=== PATIENT | female | born 2000 | race Two or more races ===

== ENCOUNTER → 2024-04-22 | Outpatient (CLI) | payer MEDICAID, SELFPAY ==
--- NOTE | 2024-04-22 15:45 | XR_ITS ---
Examination: Transvaginal ultrasound of the pelvis, complete Technique: Transvaginal sonographic images pelvis performed using amor scale imaging Exam date and time: April 22, 2024 1524 hours INDICATIONS: Irregular menses 1 years FINDINGS: Uterus 8.0 x 3.6 x 5.2 cm No uterine mass or intrauterine gestation Endometrial stripe 1.0 cm Right ovary 2.7 x 2.3 x 2.6 cm arterial flow small follicles Left ovary removed 16 years ago IMPRESSION: No uterine mass or intrauterine gestation.
== END | disposition home or self-care (01) ==
PROVIDERS: PCP Physician Assistant; Referring Provider Physician Assistant; Visit Provider Physician Assistant
DX: N92.6 Irregular menstruation, unspecified (principal); Z90.721 Acquired absence of ovaries, unilateral
CPT/HCPCS: 76830